=== PATIENT | male | born 1975 | race Caucasian/White ===

== ENCOUNTER 2023-07-09 17:08 | Day surgery (SDC) | payer BC, SELFPAY ==
[2023-07-09] VITALS (16 sets, daily range): BP systolic 109–165; BP diastolic 42–112; BMI 33.2; BMI 32.7
[2023-07-09 12:45] LABS: % Basophils 0.2 % (0-2); % Immature Granulocytes 0.5 % (0-0.5); Absolute Immature Granulocytes 0.1 10^3/uL (0-0.05); Nucleated Red Blood Cells % 0 % (-); Red Cell Dist. Width 11.6 % (11.5-14.5)
[2023-07-09 12:48] LABS: % Lymphocytes 5.1 % (20.5-51.1); % Monocytes 2.5 % (1.7-9.3); % Neutrophils 91.7 % (42.2-75.2); Absolute Lymphocytes 0.8 10^3/uL (1.2-3.4); Absolute Monocytes 0.4 10^3/uL (0.1-0.6); Absolute Neutrophils 13.5 10^3/uL (1.4-6.5); Hematocrit 45.2 % (39.0-52.0); Mean Corp Hgb Conc. 35.4 g/dL (33.0-37.0); Mean Corpuscular Hgb 30.7 pg (27.0-31.0); Mean Corpuscular Volume 86.8 fL (80.0-94.0); Mean Platelet Volume 9.7 fL (7.4-10.4); Platelet Count 323 10^3/uL (130-400); Red Blood Cell Count 5.21 10^6/uL (4.70-6.10); White Blood Cell Count 14.7 10^3/uL (4.8-10.8)
[2023-07-09] MEDS: OMNIPAQUE 50 ML PO (12:54)
[2023-07-09 13:00] LABS: ALT (SGPT) 43 U/L (0-50); AST (SGOT) 29 U/L (17-59); Alkaline Phosphatase 111 U/L (38-126); Blood Urea Nitrogen 21 mg/dl (9-20); Calcium 9.6 mg/dl (8.4-10.2); Carbon Dioxide 28 mmol/L (22-30); Chloride 100 mmol/L (98-107); Estimated Creatinine Clearance 117 ml/min; Glucose 154 mg/dl (70-99); Lipase 54 U/L (23-300); Potassium 3.9 mmol/L (3.5-5.1); Sodium 137 mmol/L (135-145); Total Bilirubin 1.2 mg/dl (0.2-1.3); Total Protein 8.4 g/dl (6.3-8.2); eGFR > 60.00
--- NOTE | 2023-07-09 13:10 | ED.GENMED ---
History of Present Illness
General
Chief Complaint: Abdominal Pain
Source: patient and spouse
Exam Limitations: none
Time Seen by Provider: 07/09/23 12:36
Nursing documentation reviewed up to this point in time: agreed with
Travel History
Have you had any contact with someone who has COVID-19?: No
Do you have any symptoms of coronavirus? Fever > 100 degrees, chills, cough, shortness of breath, sore throat, loss of taste or smell, muscle aches, or headache?: No
History of Present Illness
History of Present Illness:
48-year-old male with past medical history of hypertension, GERD who presents to the emergency room for evaluation of abdominal pain. Patient reports onset of symptoms around 2 AM he says that they essentially woke him up from sleep and have been
constant and worsening throughout the day. He describes consistent pressure sensation and occasionally becomes more sharp/stabbing. Location in the periumbilical region radiates to the epigastrium. No clear triggering factors noted. Treated with
Gaviscon, Tums without improvement. He reports associated nausea and a few episodes of vomiting. He denies any diarrhea or constipation. Denies any recent dysuria, hematuria, change in urinary frequency. Denies any fevers or chills. He denies
having had similar symptoms in the past. He denies any history of abdominal surgeries.
Review of Systems
Review of Systems
All Other Systems: ROS reviewed and negative except as documented in HPI and ROS
Constitutional: Denies fever or chills
Respiratory: Denies cough or trouble breathing
Cardiac: Denies chest pain
ABD/GI: Reports abdominal pain, nausea and vomiting; Denies diarrhea or constipated
: Denies dysuria, frequency or flank pain
Musculoskeletal: Denies neck pain or back pain
Neurological: Denies dizzy, headache, weakness or numbness
Phy Exam
Physical Exam
Physical Exam:
General: Awake, alert, oriented x3; no acute distress
Head: Normocephalic, atraumatic
Eyes: Conjunctiva normal, sclera anicteric
Throat: Airway intact, handling secretions
Neck: Trachea midline, supple without meningismus
Lungs: Clear to auscultation bilaterally, no wheezing, rales, rhonchi
Heart: Tachycardia with regular rhythm, no murmurs, gallops, or rubs
Abd: Soft, non distended, diffusely tender to palpation maximally in the epigastrium and right upper quadrant; no abdominal masses
Neuro: Cranial nerves grossly intact, speech fluid
Skin: no rash
Extremities: No edema in extremities, equal pulses in all extremities
Scores
Heart Failure Risk
Heart Failure Risk Score: Not Applicable
Heart Score for Chest Pain Patients
STEMI patient?: Not applicable
Withdrawal Assessment of Alcohol
Withdrawal Assessment Completed?: Not applicable
Course
Orders/Labs/Results
Orders:
Orders
07/09/23 12:32
Complete Blood Count/With Diff Urgent
Comprehensive Metabolic Panel Urgent
Lipase Urgent
07/09/23 12:38
CT Abd/pel W Iv And Oral Contr Urgent
Comment:
Reason For Exam: diffuse abd pain, tenderness
Iohexol [Omnipaque] See Protocol PO NOW STA
07/09/23 13:07
0.9% Sodium Chloride 1000 ml [Nss] 1,000 ml IV BOLUS
Morphine Sulfate 4 mg IV NOW STA
07/09/23 13:08
Ondansetron Injectable [Zofran] 4 mg IV NOW STA
07/09/23 13:47
Lactate Level [Lactic Acid] Urgent
Blood Culture Q30M
GIOVANI Source: Blood/Venous
Specimen Description:
07/09/23 13:54
HYDROmorphone [Dilaudid] 1 mg IV NOW STA
07/09/23 14:21
Blood Culture Q30M
GIOVANI Source: Blood/Venous
Specimen Description:
07/09/23 15:42
Urinalysis Reflex To Culture Urgent
Date Specimen was Collected: 07/09/23
Time Specimen was Collected: 12:47
07/09/23 16:24
SURGICAL CONSULT Urgent
Consulting Provider: Maicol Saunders
Was physician already notified: Yes
Piperacillin/Tazo 3.375 Gram [Zosyn] 3.375 gram in 50 ml IV NOW
07/09/23 16:30
HYDROmorphone [Dilaudid] 0.5 mg IV NOW STA
Abnormal Lab Results
07/09/23 07/09/23
12:32 15:42
WBC 14.7 H 10^3/uL
(4.8-10.8)
Abs Immat Gran (auto) 0.1 H 10^3/uL
(0-0.05)
Absolute Neuts (auto) 13.5 H 10^3/uL
(1.4-6.5)
Absolute Lymphs (auto) 0.8 L 10^3/uL
(1.2-3.4)
Neutrophils % 91.7 H %
(42.2-75.2)
Lymphocytes % 5.1 L %
(20.5-51.1)
BUN 21 H mg/dl
(9-20)
Glucose 154 H mg/dl
(70-99)
Total Protein 8.4 H g/dl
(6.3-8.2)
Urine Ketones Trace A
(Negative)
07/09/23 12:32
07/09/23 12:32
Vital Signs
Initial and Last Documented VS:
Initial Vital Signs
Temp Pulse Resp BP Pulse Ox
37.0 C 112 16 165/103 97
07/09/23 11:55 07/09/23 11:55 07/09/23 11:55 07/09/23 11:55 07/09/23 11:55
Last Documented Vital Signs
Temp Pulse Resp BP Pulse Ox
37.0 C 107 15 160/112 99
07/09/23 11:55 07/09/23 14:45 07/09/23 14:45 07/09/23 15:40 07/09/23 16:00
MDM/Problems Addressed
Differential Diagnosis Includes:
Cholecystitis, cholelithiasis, pancreatitis, gastritis, PUD/perforated ulcer, enteritis
MDM/Problems Addressed:
48-year-old male presents for evaluation of abdominal pain periumbilical radiates to the epigastrium since 2 AM constant worsening. Associate with nausea and vomiting. Arrives here to the emergency room hypertensive and tachycardic but otherwise
normal vitals. Physical exam as above. Plan to place an IV check labs including CBC and CMP, lipase. Will check urinalysis. Will send for CT of the abdomen pelvis. Will treat pain and nausea provide some IV fluids. Monitor closely reassess at
the above.
CBC and CMP reviewed: CBC shows a leukocytosis to 14.7�with tachycardia as well he has multiple SIRS criteria added on lactate and blood cultures. CMP shows no clinically significant abnormalities. Lipase normal. Awaiting CT.
CT reviewed: Shows acute calculus cholecystitis. Plan to treat with IV Zosyn. Case discussed with general surgery who will admit to their service, plan for OR.
Acute Exacerbation and/or Progression of Chronic Illness:
Acutely hypertensive�likely pain related we will treat pain but no indication for emergent antihypertensive treatment at present
Acute Exacerbation and/or Progression of Chronic Illness: HTN
*Radiology
Radiology exam reviewed: radiology read reviewed
*Pulse Oximetry
Patient hypoxic: no
*Critical Care Note
Total Time (30-74mins, 75-104mins- exclusive of procedures): Not Applicable
Data Reviewed
Source: patient and spouse
Patient Management
Discussion with other providers: Sequ[employer] Sp[employer]er (Discussed with general surgery)
Escalation/DeEscalation of care consider admission/obs:
Admission indicated�OR
ED Attending Note
-
Portions of this chart may have been created with voice recognition software.� Occasional wrong word or��sound alike� substitutions may have occurred due to the inherent limitations of voice recognition software.
Discharge Plan
Departure
Patient Disposition: Admit
Date of Disposition: 07/09/23
Time of Disposition: 16:30
Admit to doctor: Chip
Presentation/result/management discussed w/ accepting MD/DO: surgery
Discharge Problem:
Acute calculous cholecystitis
Referrals:
Maite Thomas DO [Family Provider] -
Interventions
Interventions:
*Risk Screen - Suicide Last Done: 07/09/23 11:55
*General Assessment Last Done: 07/09/23 11:55
*Neglect/Abuse Screening Last Done: 07/09/23 11:55
UR-Aurblp-Kjmivotnpm Assessment Last Done: 07/09/23 12:24
[2023-07-09] MEDS: NSS 1000 IV ×2 (13:16→20:26)
[2023-07-09] MEDS: ZOFRAN 4 MG IV (13:18)
[2023-07-09] MEDS: MORPHINE SULFATE 4 MG IV (13:18)
[2023-07-09] MEDS: DILAUDID 1 MG IV (15:36)
[2023-07-09 15:58] LABS: Urine Albumin Negative (Neg - Trace); Urine Bilirubin Negative (Negative); Urine Character Clear (Clear); Urine Color Yellow; Urine Glucose Negative (Negative); Urine Ketone Trace (Negative); Urine Leukocyte Negative (Negative); Urine Nitrite Negative (Negative); Urine Occult Blood Negative (Negative); Urine Urobilinogen Negative (Neg - 1+)
--- NOTE | 2023-07-09 16:42 | HPS.HSE ---
Addendum entered and electronically signed by Maicol Saunders MD 07/09/23 19:06:
I saw and examined the patient independently.
The Intake Nurse's note was reviewed and I agree with the note, assessment and plan except where noted below.
Comment: This is a 48-year-old male who presents with 1 day of postprandial right upper quadrant pain in the setting of several months of intermittent postprandial right upper quadrant pain. CT scan concerning for acute cholecystitis. Exam and lab
work support this diagnosis.
Will plan for laparoscopic cholecystectomy with possible cholangiogram today.
N.p.o., IV fluids, IV Zosyn.
Risks/Benefits/Alternatives, expected postoperative course and possible complications (bleeding, infection, injury to surrounding structures, acute/chronic pain) discussed at length. Patient wishes to proceed with surgery. All questions answered.
Consent obtained.
I spent roughly 60 minutes in total for the care of this patient today including direct patient care and counseling, reviewing labs, imaging, coordination of care, as well as documentation.
Original Note:
Family Physician
-
Family Physician: Maite Thomas DO
Chief Complaint
-
abdominal pain
History of Present Illness
This is a 48 yo male with a h/o of HTN and GERD who presents with epigastric abdominal pain which awakened him from sleep around 2am. He notes over the past few years he has had similar pain after heavy meals or eating fried foods but usually his
symptoms are short lived. This episode his pain did not go away. He tried to eat a nutrigrain bar around 5:50am and later vomited this up. He denies active nausea. He denies fevers or chills. Pain has improved after analagesics in the ED but is
still present. Localizing to the RUQ on abdominal exam.
Medical History
Past Medical History
Past Medical History: Reports GERD and HTN
Past Surgical History: Reports None
Social History
Tobacco: Non-smoker
Alcohol: Occasional
Personal:
Living: With Family
Family History
Family History: Not pertinent
Allergies / Home Medications
Allergies reflects when Allergies were last updated in [facility].
Home Medications with original date entered in [facility]
Allergy/Medication List:
NKDA
Takes Lisinopril 10mg PO daily
Review of Systems
-
History Source: Patient and Family
A 12 point ROS was completed and negative except as noted: Yes
Physical Exam
Vital Signs
Vital Signs
Temp Pulse Resp BP Pulse Ox
98.6 F 107 15 160/112 99
07/09/23 11:55 07/09/23 14:45 07/09/23 14:45 07/09/23 15:40 07/09/23 16:00
Physical Exam
General: Well Developed
HEENT: Moist mucous membranes
Respiratory: Non Labored Respirations
Cardiac: Regular Rhythm
GI: Soft, Non Distended and Tender (ruq)
Skin: Warm and Dry
Neuro: Awake, Alert and AO x 3
Psych: Calm
Laboratory Results
-
07/09/23 12:32
07/09/23 12:32
Laboratory Results
Lactic Acid 1.0 mmol/L (0.7-2.0) 07/09/23 13:47
Total Bilirubin 1.2 mg/dl (0.2-1.3) 07/09/23 12:32
AST 29 U/L (17-59) 07/09/23 12:32
ALT 43 U/L (0-50) 07/09/23 12:32
Alkaline Phosphatase 111 U/L (38-126) 07/09/23 12:32
Lipase 54 U/L (23-300) 07/09/23 12:32
Data Reviewed
-
CT Scan: Image Personally Visualized and interpreted, Report Reviewed by me, Discussed with Physician, Discussed with Nurse, Discussed with Patient and Discussed with Family
Lab Data: Labs Reviewed by me, Discussed with Physician, Discussed with Nurse, Discussed with Patient and Discussed with Family
Old Records: Reviewed
Impression/Plan
-
IMPRESSION:
48 yo male with a h/o HTN presenting with RUQ pain since 2am today. Mild leukocytosis noted. Stable VS and afebrile. CT imaging and exam consistent with acute calculous cholecystitis.
PLAN:
Admit to surgery service
Keep NPO for laparoscopic cholecystectomy
Start IV abx in the ED
Analgesics as needed
IVF while NPO
VTE ppx with scd's perioperatively
[2023-07-09] MEDS: ZOSYN 50 IV ×2 (16:43→21:19)
--- NOTE | 2023-07-09 19:06 | W.SUR.PREOP ---
Pre-Operative Surgical Note
-
I have examined this patient prior to the performance of the scheduled procedure.
The patient's condition is unchanged from the time of the current History and
Physical and the patient is able to undergo the scheduled procedure.
--- NOTE | 2023-07-09 19:06 | W.IMMPOSTOP ---
Surgical Immed Post Op Note
-
Primary Surgeon: Maicol Saunders MD
Assisting Surgeon: None
Pre-op Diagnosis: Acute cholecystitis
Post-op Diagnosis: Acute on chronic cholecystitis
Procedure Performed: Laparoscopic cholecystectomy
Anesthesia Type: General
Specimen / Cultures: Gallbladder and contents
Estimated Blood Loss: 23 cc
Complications: None
Operative Findings: Acute on chronic cholecystitis. Critical view of safety not obtained. Cystic artery identified and ligated early. The cystic duct isolated but quite foreshortened so no cholangiogram was performed. Duct was ligated with a
clips and a 0 PDS Endoloop. No spillage of bile or stones. There was some diffuse oozing due to inflammation. 2 x 3 cm piece of Surgicel was placed near the hilum to assist with hemostasis.
POST OP PLAN:
Imaging: None
Labs: Routine AM
Diet: Clears tonight, advance to Regular as tolerated
Analgesia: Tylenol 650mg q6 Nishant, Bindu 5mg q6 PRN, Dilaudid 0.5mg q2h PRN
Neuro/vascular checks: q4h
AC/AP: Hold Therapeutic AC, Ok for DVT PPx
Activity: Ad Irlanda
Wound/Incisions/Drains: Routine
Abx: Zosyn, 4 days of antibiotics on discharge.
Dispo: RNF, anticipate discharge home tomorrow. Antibiotics and tramadol prescription sent.
--- NOTE | 2023-07-09 19:09 | OR.RPT ---
Operative Report
Operative Report
Patient Name: Yomi Walton
: 1975
Date of Operation: 07/09/2023
Preoperative Diagnosis: Acute cholecystitis
Postoperative Diagnosis: Acute on chronic cholecystitis
Procedure(s):
Laparoscopic Cholecystectomy
Surgeon(s):
Dr. Saunders
Manager It Training(s):
None
Anesthesia: General
Estimated Blood Loss: 23 cc
Urine Output: None
Drains/Lines/Implants: None
Specimens:
1. Gallbladder and contents
HPI/Surgical Indications:
This is a 48-year-old male who presents with 1-2 days of abdominal pain in the setting of intermittent postprandial right upper quadrant pain over the past several months. Exam, labs and imaging are consistent with acute cholecystitis.
Risks/Benefits/Alternatives were discussed at length, and the patient agreed to proceed with surgery.
Findings:
The patient was noted to have significant gallbladder inflammation with edema and obliteration of the natural planes particularly in the triangle of Calot. A Critical View of Safety was not obtained, the cystic artery was identified and ligated
early. The cystic duct was also identified but foreshortened so divided with clips and a 0 PDS Endoloop. A cholangiogram was not performed.
Procedure Description:
The patient was brought to the Operating Room and placed in the supine position with one arm tucked. Following uneventful induction of general endotracheal anesthesia, an orogastric tube was placed. The abdomen was prepped and draped in the usual
sterile fashion. A timeout was performed confirming the procedure, consent, and that IV antibiotics were infused and sequential compression devices were confirmed to be on. The abdomen was entered using a left subcostal Veress technique followed by
a right upper quadrant 11 mm Optiview trochar. Pneumoperitoneum to 15 mmHg pressure was obtained without difficulty and we confirmed that no injury had occurred during our entry. The patient was positioned in reverse Trendelenberg and rotated with
the right side up slightly. Two 5mm trocars were then placed along the right subcostal margin, followed by a 12 mm port in the epigastrium. The gallbladder was emptied using a decompressing needle through the fundus of the gallbladder with
evacuation of hydrops before A locking grasping forceps was placed on the fundus of the gallbladder where it was then retracted cephalad and to the right. Using appropriate grasping instruments, the peritoneum overlying the triangle of Calot was
incised and extended superiorly on both the anterior and posterior gallbladder taylor. The tissues here were markedly inflamed with complete loss of the natural planes consistent with chronic cholecystitis. The cystic artery was identified early
and dissected circumferentially. It was controlled with 2 5 mm titanium clips proximally and 1 distally and divided. The cystic duct was identified before the infundibulum was dissected off the cystic plate. The cystic duct appeared quite
foreshortened so we opted not to perform a cholecystectomy. The duct was ligated with two 5 mm titanium clips proximally and 1 distally and divided. The stump was reinforced with a 0 PDS Endoloop. After ensuring both the artery and duct were
divided, the gallbladder was freed from the liver using electrocautery. There was no spillage of bile or stones. The gallbladder bed was inspected and excellent hemostasis was obtained. There was some oozing noted in the proximal third of the
gallbladder fossa from a posterior cystic artery branch which was ligated with two 5 mm clips. There was also some oozing from the tissues around the cystic artery and stopped with application of a 2 x 3 cm piece of Surgicel and pressure with a 4 x
8 Ray-Karan. After the Ray-Karan was removed, the Surgicel was left in place at the hilum and hemostasis was confirmed. The gallbladder was extracted through the 12 mm trocar site using an endocatch bag. The abdomen was again irrigated and excellent
hemostasis was assured. All remaining trocars were then removed and the pneumoperitoneum was evacuated. The 12 mm trocar site was closed using 0 PDS suture. All trocar sites were closed at the skin level using 4-0 Monocryl followed by Dermabond.
Overall, the patient tolerated the procedure well and was taken to the Recovery Room postoperatively in stable condition.
I was the attending physician and performed the procedure with no assistance. I was present for all portions of the case
Maicol Saunders MD
[2023-07-09 19:17] LABS: Glucose - Point of Care 130 mg/dl (70-99)
--- NOTE | 2023-07-09 21:00 | PTCARENOTE ---
Patient received from PACU via bed; [facility] order. VSS. IVF infusing in #20 RAC. Lap sites intact. PMH and medications reviewed by this RN w/ patient and spouse. Plan of care discussed. Patient oriented to room and call orozco within reach.
[2023-07-09] MEDS: TYLENOL 650 MG PO (23:30)
[2023-07-10] MEDS: DILAUDID 0.25 MG IV (02:27)
[2023-07-10 03:52] VITALS: BP 103/56
[2023-07-10] MEDS: ZOSYN 50 IV ×2 (05:00→10:00)
[2023-07-10] MEDS: TYLENOL 650 MG PO (06:11)
[2023-07-10 06:47] LABS: % Basophils 0.1 % (0-2); % Immature Granulocytes 0.6 % (0-0.5); % Lymphocytes 8.6 % (20.5-51.1); % Monocytes 7.4 % (1.7-9.3); % Neutrophils 83.3 % (42.2-75.2); Absolute Immature Granulocytes 0.1 10^3/uL (0-0.05); Absolute Lymphocytes 1.1 10^3/uL (1.2-3.4); Absolute Monocytes 0.9 10^3/uL (0.1-0.6); Absolute Neutrophils 10.6 10^3/uL (1.4-6.5); Hematocrit 38.1 % (39.0-52.0); Hemoglobin 13.3 g/dL (13.0-18.0); Mean Corp Hgb Conc. 34.9 g/dL (33.0-37.0); Mean Corpuscular Hgb 30.9 pg (27.0-31.0); Mean Corpuscular Volume 88.4 fL (80.0-94.0); Mean Platelet Volume 10.3 fL (7.4-10.4); Nucleated Red Blood Cells % 0 % (-); Platelet Count 305 10^3/uL (130-400); Red Blood Cell Count 4.31 10^6/uL (4.70-6.10); Red Cell Dist. Width 11.9 % (11.5-14.5); White Blood Cell Count 12.7 10^3/uL (4.8-10.8)
[2023-07-10 07:01] VITALS: BP 123/84
[2023-07-10 07:04] LABS: ALT (SGPT) 73 U/L (0-50); AST (SGOT) 54 U/L (17-59); Albumin 3.8 g/dl (3.5-5.0); Alkaline Phosphatase 62 U/L (38-126); Blood Urea Nitrogen 13 mg/dl (9-20); Calcium 8.4 mg/dl (8.4-10.2); Carbon Dioxide 26 mmol/L (22-30); Chloride 102 mmol/L (98-107); Estimated Creatinine Clearance 116 ml/min; Glucose 140 mg/dl (70-99); Sodium 134 mmol/L (135-145); Total Bilirubin 1.6 mg/dl (0.2-1.3); Total Protein 6.4 g/dl (6.3-8.2); eGFR > 60.00
--- NOTE | 2023-07-10 07:56 | W.PN.GS2 ---
Today's Communication / Plan
-
-- Regular diet
-- HLIV
-- Pain control: Tylenol, Toradol, Oxycodone
-- Abx: Zosyn while in patient, Augmentin x 4 days on DC
-- Home medications
-- Dispo pending
Assessment / Plan
-
Patient is a 48 yo M POD#1 s/p laparoscopic cholecystectomy
Recovering well overall. Mild elevation in bilirubin noted.
-- Regular diet
-- HLIV
-- Pain control: Tylenol, Toradol, Oxycodone
-- Abx: Zosyn while in patient, Augmentin x 4 days on DC
-- Home medications
-- Dispo pending
Subjective Data
-
Date of Service: July 10, 2023
No complaints. Feels improved from admission. Pain well-controlled. No nausea or vomiting. No fevers or chills.
Objective Data
-
Intake and Output
07/09/23 07/10/23 07/11/23
06:59 06:59 06:59
Intake Total 1800 / 1800
Balance 1800 / 1800
Intake:
Oral fluids 240 / 240
IV fluids (Total) 1460 / 1460
Normosol 500 / 500
IV piggybacks 100 / 100
Other:
Number of approximated LARGE 1
amounts of urine
Vital Signs
Temp Pulse Resp BP Pulse Ox
98.6 F 70 16 103/56 97
07/10/23 03:52 07/10/23 03:52 07/10/23 03:52 07/10/23 03:52 07/10/23 03:52
Lab Results
07/10/23 05:52
07/10/23 05:52
Calcium 8.4 mg/dl (8.4-10.2) 07/10/23 05:52
Total Bilirubin 1.6 mg/dl (0.2-1.3) H 07/10/23 05:52
AST 54 U/L (17-59) 07/10/23 05:52
ALT 73 U/L (0-50) H 07/10/23 05:52
Alkaline Phosphatase 62 U/L (38-126) 07/10/23 05:52
Total Protein 6.4 g/dl (6.3-8.2) D 07/10/23 05:52
Albumin 3.8 g/dl (3.5-5.0) 07/10/23 05:52
Physical Exam
-
Gen: NAD
Abd: soft, mild/appropriate tenderness, ND, non-peritoneal, incisions c/d/i - no erythema or ecchymosis, mild drainage
[2023-07-10] MEDS: ZESTRIL 10 MG PO (08:06)
[2023-07-10] MEDS: PEPCID 20 MG PO (08:06)
[2023-07-10] MEDS: NSS 1000 IV (08:11)
--- NOTE | 2023-07-10 09:26 | W.DS.TRANS ---
Addendum entered and electronically signed by ANTONELLA Long 07/16/23 11:17:
dictated #[id number]
Original Note:
DC Summary - Senior Telecommunications Specialist
-
Discharge Instructions:
Discharge Diagnosis/Procedures Acute cholecystitis. Laparoscopic
cholecystectomy.
Diet No restrictions
Activity No strenuous activity
Driving Restrictions As prior to admission
Bathing Restrictions OK to Shower
Instructions:
Stand-Alone Forms:
Changes to Home Medications: Yes
Discharge Medications:
DC Medications w/original date entered in [email or web address]
Prevacid 30 PO QDAY 07/09/23
acetaminophen 325 mg tablet 650 mg PO Q6HPRN PRN mild pain #14 tabs 07/09/23
amoxicillin 500 mg-potassium clavulanate 125 mg tablet (Augmentin) 1 tab PO Q12H #8 tabs 07/09/23
fexofenadine 180 mg tablet 180 mg PO DAILY 07/09/23
fluticasone propionate 50 mcg/actuation nasal spray,suspension 1 spray intranasal DAILY 07/09/23
ibuprofen 600 mg tablet 600 mg PO Q6H PRN pain #14 tabs 07/09/23
lisinopril 10 mg tablet 10 mg PO DAILY 07/09/23
olopatadine 0.1 % eye drops (Pataday Twice Daily Relief) 1 drp BOTH EYES BID 07/09/23
tramadol 50 mg tablet 25 mg PO Q6HPRN PRN severe pain/breakthrough pain #8 tabs 07/09/23
venlafaxine 37.5 mg capsule,extended release 24 hr (Effexor XR) 37.5 mg PO DAILY 07/09/23
Home Medication Changes
Pending Results: No
--- NOTE | 2023-07-10 11:32 | CM ---
Chart reviewed. Spoke with pt and at bedside
Pt lives in a split level home with and children
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
Denies DME; past SNF/HH
PCP - Dr Lopez Harkins
Pharm - [facility]
Has ride at d/c
Plan - Anticipate home -no needs
== END 2023-07-10 11:47 | disposition home or self-care (01) ==
LOC: SDS 17:08
PROVIDERS: Emergency Medicine; ATTENDING PHYSICIAN Surgery; EMERGENCY PHYSICIAN Emergency Medicine; FAMILY PHYSICIAN Family Medicine
DX: K80.12 Calculus of gallbladder with acute and chronic cholecystitis without obstruction (principal); K83.9 Disease of biliary tract, unspecified
CPT/HCPCS: 47562; 88304; 74177; 80053; 81003; 82962; 83605; 83690; 85025; 87040; 96361; 96374; 96375; 99285; Q9967